=== PATIENT | female | born 1940 | race Caucasian/White ===

== ENCOUNTER → 2018-03-14 07:58 | Outpatient (CLI) | payer MEDICARE, SELFPAY ==
--- NOTE | 2018-03-14 | DI.MG.S_ITS ---
UNILATERAL LEFT DIGITAL SCREENING MAMMOGRAM 3D/2D WITH CAD POST MASTECTOMY: 03/14/2018 CLINICAL: Routine screening. Personal history of right breast cancer. Comparison is made to exams dated: 12/16/2016 mammogram, 11/21/2015 [facility], and 08/23/2014 mammogram - [facility]. There are scattered fibroglandular elements in left breast. Current study was also evaluated with a Computer Aided Detection (CAD) system. No significant masses, calcifications, or other findings are seen in the breast. There has been no significant interval change. IMPRESSION: NEGATIVE There is no mammographic evidence of malignancy. A 1 year screening mammogram is recommended. This exam was interpreted at Station ID: [id number]. NOTE: For mammograms, a report in lay terms will be sent to the patient. Approximately 15% of breast malignancies will not be visualized mammographically. In the management of a palpable breast mass, a negative mammogram must not discourage biopsy of a clinically suspicious lesion. Electronically Signed By: Arlette ramsey/aby:03/14/2018 15:03:03 copy to: PHILIP WADE letter sent: Normal Exam ACR BI-RADS Category 1: Negative [id number]
== END ==
PROVIDERS: PCP Internal Medicine; Visit Provider Physician Assistant
DX: Z12.31 Encounter for screening mammogram for malignant neoplasm of breast (principal); Z85.3 Personal history of malignant neoplasm of breast
CPT/HCPCS: 77063; 77065

== ENCOUNTER → 2018-12-22 14:12 | Outpatient (ROUT) | payer MEDICARE, SELFPAY ==
[2018-11-16 15:42] VITALS: BMI 30.1
[2018-12-22 14:29] LABS: Add Manual Diff / Slide Review NO; Basophils Absolute Auto 0 /uL (0-100); Basophils Percent Auto 0.9 % (0-2); Eosinophils Absolute Auto 200 /uL (0-450); Eosinophils Percent Auto 3.3 % (2-4); Hematocrit 36.4 % (36-46); Hemoglobin 12.3 g/dL (12.0-16.0); Lymphocytes Absolute Auto 800 /uL (1100-4500); Lymphocytes Percent Auto 14.7 % (25-40); Mean Corpuscular HGB Conc 33.8 % (30-36); Mean Corpuscular Hemoglobin 31.8 PG (26-34); Mean Corpuscular Volume 94.1 fL (80-100); Monocytes Absolute Auto 600 /uL (0-900); Neutrophils Absolute Auto 3900 /uL (1500-7000); Neutrophils Percent Auto 71.1 % (50-75); Platelet Count 215 X10^3/uL (150-400); Red Blood Cell Count 3.87 X10^6/uL (4.0-5.2); Red Cell Distribution Width 13.6 % (11.6-14.8); White Blood Cell Count 5.5 X10^3/uL (4.5-11.0)
[2018-12-22 14:36] LABS: Alanine Aminotransferase 24 IU/L (9-52); Albumin 4.3 g/dL (3.5-5.0); Albumin Globulin Ratio 1.4 (1.0-2.8); Alkaline Phosphatase 89 U/L (38-126); Aspartate Aminotransferase 32 IU/L (14-36); BUN Creatinine Ratio 26.3 (6-22); Bilirubin Total 0.5 mg/dL (0.2-1.3); Blood Urea Nitrogen 21 mg/dL (7-17); Calcium 9.5 mg/dL (8.4-10.2); Carbon Dioxide 34 mmol/L (22-32); Chloride 95 mmol/L (98-107); Cholesterol 154 mg/dL (140-199); Estimated Glomerular Filt Rate > 60.0 mL/min (>60); Glucose 85 mg/dL (80-110); HDL Cholesterol 76 mg/dL (40-60); HEMOLYSIS < 15 (0-50); LDL Cholesterol Calculated 63 mg/dL (<100); Potassium 4.2 mmol/L (3.4-5.1); Sodium 138 mmol/L (137-145); Total Protein 7.3 g/dL (6.3-8.2); Triglycerides 76 mg/dL (35-150)
[2018-12-22 15:41] LABS: TSH w/ Reflex to FT4 1.28 uIU/mL (0.47-4.68)
== END ==
PROVIDERS: PCP Physician Assistant; Visit Provider Physician Assistant
DX: E03.9 Hypothyroidism, unspecified (principal); E78.2 Mixed hyperlipidemia; K21.0 Gastro-esophageal reflux disease with esophagitis; G25.0 Essential tremor
CPT/HCPCS: 80053; 80061; 84443; 85025

== ENCOUNTER 2019-03-06 08:30 | Outpatient (RCR) | payer MEDICARE, SELFPAY ==
[2018-11-16 15:42] VITALS: BP 148/70; RESP 14; O2SAT 92; BMI 30.1
--- NOTE | 2018-11-16 16:20 | PR.IEVALNOTE ---
Current Diagnoses Centrilobular emphysema (11/08/18) Visit Care Team Role Provider Type Caitlyn Mathews PA-C Primary Care Provider Advanced Special Education Inclusion Teacher Specialty: Internal Medicine Address: [address] [place] [address], [address] Email: [email or web address] Dannielle Mishra MD Attending Provider Non-Staff Specialty: Medical Address: [address] [place] [address], [address] Email: Pulmonary Rehab Initial Evaluation [place] Pulmonary Rehab Inital Assessment Start: 11/08/18 16:24 Freq: Status: Active Protocol: Document 11/16/18 15:42 JWCatherine (Rec: 11/16/18 16:20 EDWIN [id number]) AK Exercise Assessment Dx: COPD, upper lobe emphysema Comment Hx:breast cancer Primary Language JORDANIAN Manager Film Required No Hearing Ability Normal Visual Impairment No Limitations Visual Difficutly None Visual Assist Glasses Musculoskeletal Symptoms Arthralgias,Difficulty Walking ,Joint Pain,Muscle Weakness Body Alignment Posture Forward Head,Leaning Assistive Devices None History of Falling (Immediate or No Previous) Secondary Diagnosis (More Than 2 Medical No Diagnoses) Comment Patient denies and barriers and states she feels she can exercise independently once she becomes comfortable with exercise through participation in pulmonary Rehab Comment patient doesn't participate in any purposeful exercise AK Vital Signs Pulse Oximetry (91-100 %) 92 Nasal Cannula Yes Oxygen Flow Rate (L/min) 2.5 Respiratory Rate (12-24 breaths/min) 14 Respiratory Effort Non-Labored,Accessory Muscle Use Respiratory Depth Normal Respiratory Pattern Pursed Lip Assessment clear to auscultation with no wheezes or rhonchi bilaterally Right Arm Blood Pressure (90/60-140/90 mmHg) 148/70 H Blood Pressure Method Manual Cuff/Auscultation Blood Pressure Position Sitting Bilateral Ankle Comment +1 AK Six Minute Walk Test Oxygen Delivery Method Nasal Cannula Oxygen Flow Rate (L) (L/min) 6 Respiratory Rate (breaths/min) 18 Pulse Rate (beats/min) 86 O2 Saturation by Pulse Oximetry (%) 92 Pulse Rate (beats/min) 86 Ambulation Distance (feet) 150 O2 Saturation by Pulse Oximetry (%) 91 Pulse Rate (beats/min) 90 Ambulation Distance (feet) 150 O2 Saturation by Pulse Oximetry (%) 89 Pulse Rate (beats/min) 88 Ambulatory Distance (feet) 100 O2 Saturation by Pulse Oximetry (%) 94 Respiratory Rate (breaths/min) 22 Pulse Rate (beats/min) 100 Ambulation Distance (feet) 0 O2 Saturation by Pulse Oximetry (%) 92 Pulse Rate (beats/min) 94 Ambulation Distance (feet) 100 O2 Saturation by Pulse Oximetry (%) 92 PUlse Rate (beats/min) 80 Ambulation Distance (feet) 150 O2 Saturation by Pulse Oximetry (%) 88 Respiratory Rate (breaths/min) 16 Pulse Rate (beats/min) 74 O2 Saturation by Pulse Oximetry (%) 96 Activity Tolerance Poor Adverse Reactions Anxiety,Increased Shortness of Breath,Unsteady Gait Distance 650 Isaura RPE Scale 14 Oriented to RPE Scale Yes Dyspnea 4 Oriented to Dyspnea Scale Yes AK Exercise Goals Exercise Goals Progression of exercise training volume will result from increases in time, intensity and frequency. Initial emphasis will be on increasing time Exercise Goals demonstrate proper technique with pursed lip breathing demonstrate breath sequencing with resistance exercises, ADL 's, stairs etc DASI Number and Comment 5.44 Short Term learn to climb stairs without onset of intolerant dyspnea and fatigue Prison be able to walk 500 ft without stopping due to dyspnea snd fatigue AK Pulmonary Rehab Orientation Complete Complete Yes AK Nutrition Assessment PFT Date 10/04/18 Forced Vital Capacity (FVC) 2.37 71% Slow Vital Capacity (SVC) 2.40 72% Forced Exp. Volume/Forced Vital Cap 40 Ratio (FEV1/FVC Ratio) Forced Expiratory Volume in 1 sec. 0.95 38% Diffusing Capacity of the Lung (DLCO) 28% History of Diabetes No Admit Height 175 cm Admit Weight 92.3 kg Admit Body Mass Index (BMI) 30.1 Liters Per Minute at Rest 2.5 Liters per Minute with ADL's 4 Liters per Minute with Sleep 2.5 Liters per Minute with Exercise 4-6 Oxygen Intervention/Education instructed with necessity to tirate oxygen to maintain SpO2 =>88-90% depending on activity High Energy Periods Printed Circuit Board Panels Developer,Mid-Morning Tolerates Activity Poor Signs and Symptoms Activity Intolerance Dyspnea on Exertion,Fatigue on Exertion,Weakness on Exertion Daytime Naps Yes AK Education Pre-Test Score 93% Tobacco Use Former, Quit >6 Months Tobacco Product Used cigarettes Total Years Used 40 Packs Per Day 2 Use Yes Type wine and liquor Amount 1/day Concerns None Education Topics Breathing Retraining Discussed Education Requirements on Yes Intake AK Psychosocial Initial Assess HADS Score 3 HADS Score 3 Marital Status Target Goals Demonstrate proper technique when using respiratory medications Physician Comment Ready for Pulmonary Rehabilitation Cooperative,Motivated
--- NOTE | 2018-12-15 11:04 | PR.REVALNOTE ---
Current Diagnoses Centrilobular emphysema (12/15/18) Visit Care Team Role Provider Type Caitlyn Mathews PA-C Primary Care Provider Advanced Safemaker Specialty: Internal Medicine Address: [address] [place] [address], [address] Email: [email or web address] Dannielle Mishra MD Attending Provider Non-Staff Specialty: Medical Address: [address] [place] [address], [address] Email: Pulmonary Rehab Re-Evaluation [place] Education Start: 11/08/18 16:24 Freq: Status: Active Protocol: Document 12/12/18 11:15 [facility] (Rec: 12/12/18 11:17 [facility] [id number]) [place] Education Education Pt attended Education today with the Program Proposals Coordinator. Subject matter Labels/Sugars and Salts . [place] Pulmonary Rehab. Re-Assessment Start: 11/08/18 16:24 Freq: Status: Active Protocol: Document 12/15/18 10:42 JW (Rec: 12/15/18 11:04 [facility] [id number]) [place] Exercise Re-Assessment New Session Number 1-8 Type Nustep,BioDex METs (resistance level) 3.06 strdr 2.64 ns % Improvement 72% strdr 9%ns Interval Training No Shortness of Breath with Exercise Yes Desaturation with Exercise No Free Weight Yes: 1# 12r 2s Band Level #3 band Intervention able to tolerate 20 mins of continuous CVEX-goal met participates in aerobic activities 30-60 mins 3x/week- showing progress demonstrates proper PLB technique-goal met will continue to reinforce current O2 needs 2-4 lpm dependent on exercise [place] Education Re-Assessment Topics Breathing Retraining,Benefits of Exercise,Eating Right NC Psychosocial Re-Assessment Patient in Class Regularly Yes Interventions Pt attending class regularly Referral Needed No Goals Pt will continue to attend classes 3x wk,Participate in social and educational discussion,Received emotional support from family/friends Additional Comment patient has had appointments scheduled during [place] sessions, discussed need to schedule around NC sessions rosalia possible
--- NOTE | 2019-01-26 10:58 | PR.REVALNOTE ---
Current Diagnoses Centrilobular emphysema (01/26/19) Visit Care Team Role Provider Type Caitlyn Mathews PA-C Primary Care Provider Advanced Japanese Tutor Specialty: Internal Medicine Address: [address] [place] [address], [address] Email: [email or web address] Dannielle Mishra MD Attending Provider Non-Staff Specialty: Pulmonology Address: [address] [place] [address], [address] Email: Pulmonary Rehab Re-Evaluation [place] Education Start: 11/08/18 16:24 Freq: Status: Active Protocol: Document 12/12/18 11:15 [facility] (Rec: 12/12/18 11:17 [facility] [id number]) [place] Education Education Pt attended Education today with the Telex Operator. Subject matter Labels/Sugars and Salts . [place] Pulmonary Rehab. Re-Assessment Start: 11/08/18 16:24 Freq: Status: Active Protocol: Document 12/15/18 10:42 [facility] (Rec: 12/15/18 11:04 [facility] [id number]) [place] Exercise Re-Assessment New Session Number 1-8 Type Nustep,BioDex METs (resistance level) 3.06 strdr 2.64 ns % Improvement 72% strdr 9%ns Interval Training No Shortness of Breath with Exercise Yes Desaturation with Exercise No Free Weight Yes: 1# 12r 2s Band Level #3 band Intervention able to tolerate 20 mins of continuous CVEX-goal met participates in aerobic activities 30-60 mins 3x/week- showing progress demonstrates proper PLB technique-goal met will continue to reinforce current O2 needs 2-4 lpm dependent on exercise [place] Education Re-Assessment Topics Breathing Retraining,Benefits of Exercise,Eating Right [place] Psychosocial Re-Assessment Patient in Class Regularly Yes Interventions Pt attending class regularly Referral Needed No Goals Pt will continue to attend classes 3x wk,Participate in social and educational discussion,Received emotional support from family/friends Additional Comment patient has had appointments scheduled during [place] sessions, discussed need to schedule around [place] sessions rosalia possible Document 01/26/19 10:32 JWS (Rec: 01/26/19 10:58 [facility] [id number]) [place] Exercise Re-Assessment New Session Number 9-18 Type Nustep,BioDex METs (resistance level) 3.20 strdr, 2.82 ns % Improvement 19% Strder 6% NS Interval Training Yes: 3.91 mets on strder Shortness of Breath with Exercise Yes Desaturation with Exercise No Free Weight Yes: 2# 12r 2s Band Level Yes: #3 Toward Target Goals increase in hand weights- showing progress GA Nutrition Re-Assessment Hypoxia Re-Assessment pt demonstrates appropriate titration depending on activity to keep SpO2 =>88-90% [place] Education Re-Assessment Topics Normal Anatomy and Physiology, Breathing Retraining,Benefits of Exercise,Activities of daily living/Leisure Activities,Eating Right, Irritant Avoidance/Prevention of Respiratory Infections, Coping with Chronic Lung Disease Goals Pt will Master PLB and Diaphragmatic Breathing,Pt will Master Energy Conserving Techniques,Pt will learn exercise safety,Pt will continue ED topics until completion [place] Psychosocial Re-Assessment Patient in Class Regularly Yes Interventions Pt attending class regularly Goals Participate in social and educational discussion, Received emotional support from family/friends Additional Comment patient attends 2x week
--- NOTE | 2019-03-20 13:46 | PR.DCNOTE ---
Current Diagnoses Centrilobular emphysema (03/20/19) Visit Care Team Role Provider Type Caitlyn Mathews PA-C Primary Care Provider Advanced Luggage Repairer Specialty: Internal Medicine Address: [address] [place] [address], [address] Email: [email or web address] Dannielle Mishra MD Attending Provider Non-Staff Specialty: Pulmonology Address: [address] [place] [address], [address] Email: Pulmonary Rehab Discharge Evaluation [place] Education Start: 11/08/18 16:24 Freq: Status: Active Protocol: Document 12/12/18 11:15 [facility] (Rec: 12/12/18 11:17 [facility] [id number]) [place] Education Education Pt attended Education today with the Machine Heel Seat Fitter. Subject matter Labels/Sugars and Salts . [place] Pulmonary Rehab. DC Assessment Start: 11/08/18 16:24 Freq: Status: Active Protocol: Document 03/20/19 13:38 [facility] (Rec: 03/20/19 13:46 [facility] [id number]) [place] Exercise Discharge Assess Session 9 Type ART METs (resistance level) 3.20STRDR % Improvement 0% Interval Training No Shortness of Breath with Exercise Yes Desaturation with Exercise No Free Weight Yes: 2# 12r 2s Band Level Yes: #2 [place] Nutrition DC Assessment Patient Ready Yes Reason Other (See comment below) Other Comment Patient has withdrawn from program at this time. Patient states she feels unable to travel to program from home.
== END 2019-03-06 08:35 ==
LOC: PUL 08:30
PROVIDERS: PCP Physician Assistant; Visit Provider Internal Medicine
DX: J43.2 Centrilobular emphysema (principal)
CPT/HCPCS: G0424

== ENCOUNTER → 2019-03-16 10:44 | Outpatient (CLI) | payer MEDICARE, SELFPAY ==
[2018-11-16 15:42] VITALS: BMI 30.1
--- NOTE | 2019-03-16 | DI.MG.S_ITS ---
UNILATERAL LEFT DIGITAL SCREENING MAMMOGRAM 3D/2D WITH CAD POST MASTECTOMY: 03/16/2019 CLINICAL: Routine screening. Routine screening. Personal history of right breast cancer. Comparison is made to exams dated: 03/14/2018 mammogram, 12/16/2016 mammogram, and 11/21/2015 mammogram - [facility]. There are scattered fibroglandular elements in left breast. Current study was also evaluated with a Computer Aided Detection (CAD) system. No significant masses, calcifications, or other findings are seen in the breast. There has been no significant interval change. IMPRESSION: NEGATIVE There is no mammographic evidence of malignancy. A 1 year screening mammogram is recommended. This exam was interpreted at Station ID: [id number]. NOTE: For mammograms, a report in lay terms will be sent to the patient. Approximately 15% of breast malignancies will not be visualized mammographically. In the management of a palpable breast mass, a negative mammogram must not discourage biopsy of a clinically suspicious lesion. Electronically Signed By: Tyrone aguilar/aby:03/16/2019 18:09:10 letter sent: Normal Exam ACR BI-RADS Category 1: Negative [id number]
== END ==
PROVIDERS: PCP Physician Assistant; Visit Provider Physician Assistant
DX: Z12.31 Encounter for screening mammogram for malignant neoplasm of breast (principal); Z85.3 Personal history of malignant neoplasm of breast; Z90.11 Acquired absence of right breast and nipple
CPT/HCPCS: 77063; 77067

== ENCOUNTER → 2019-10-17 14:37 | Outpatient (CLI) | payer MEDICARE, SELFPAY ==
[2018-11-16 15:42] VITALS: BMI 30.1
--- NOTE | 2019-10-17 | DI.US.S_ITS ---
PROCEDURE: US CAROTID DOPPLER BI INDICATIONS: RIGHT PRIMARY OPTIC ATROPHY TECHNIQUE: Color and pulse Doppler interrogation was performed of both carotid systems, with image documentation and velocity measurements. COMPARISON: [facility], [place], CAROTID ARTERY DOPPLER BILAT, 04/23/2015, 10:33. FINDINGS: Stenosis calculations are based on SRU (Society of Radiologists in Ultrasound) criteria. Right side: Brachial blood pressure: 182/80 mm Hg. Common carotid artery peak systolic velocity: 102 cm/sec. Internal carotid artery peak systolic velocity: 133 cm/sec. Internal carotid artery end diastolic velocity: 33 cm/sec. External carotid artery peak systolic velocity: 160 cm/sec. ICA/CCA peak systolic ratio: 1.3 . Freed scale imaging description: Mild to moderate calcific and soft plaque Percent internal carotid artery stenosis: 50-69% stenosis . Vertebral artery: Flow direction is antegrade. Left side: Brachial blood pressure: 130/84 mm Hg. Common carotid artery peak systolic velocity: 205 cm/sec. Internal carotid artery peak systolic velocity: 212 cm/sec. Internal carotid artery end diastolic velocity: 25 cm/sec. External carotid artery peak systolic velocity: 231 cm/sec. ICA/CCA peak systolic ratio: 1.0 . Freed scale imaging description: Moderate calcific and soft plaque Percent internal carotid artery stenosis: Less than 50% stenosis . Vertebral artery: Flow direction is antegrade. IMPRESSION: 50-69% stenosis within the proximal right internal carotid artery, less than 50% stenosis on the left. Vertebral arterial flow is antegrade in direction. Dictated by: Daniel Beverly M.D. on 10/18/2019 at 11:46 Approved by: Daniel Beverly M.D. on 10/18/2019 at 11:50
--- NOTE | 2019-10-17 | DI.MRI.S_ITS ---
PROCEDURE: MR HEAD/BRAIN WO/W CON INDICATIONS: Primary optic atrophy, right eye TECHNIQUE: Noncontrast axial T1 spin echo, axial T2 fast spin echo, sagittal and axial FLAIR, coronal T2 fast spin echo, axial gradient echo, axial diffusion and ADC through the brain. After the administration of contrast, axial and coronal T1 spin echo with fat saturation through the brain. COMPARISON: None. FINDINGS: Image quality: Excellent. CSF spaces: Basal cisterns are patent. No extra-axial fluid collections. Ventricles are normal in size and shape. Brain: No midline shift. No intracranial bleeds or masses. No abnormal intracranial enhancement. There is cerebral volume loss for age. There is periventricular white matter chronic small vessel ischemic change. The brainstem appears normal. Diffusion-weighted images demonstrate no acute ischemic insults. No chronic ischemic insults. Normal intravascular flow voids are present. Skull and face: Calvarial marrow is normal in signal. Orbits appear normal. Sinuses: Sinuses and mastoids appear clear. IMPRESSION: No evidence of acute ischemia. No acute intracranial signal abnormality or enhancement. Diffuse small white matter changes, probably represent chronic microvascular ischemic disease, versus statistically less likely demyelination or other infectious, inflammatory, neurodegenerative etiology, technically nonspecific. Dictated by: Benny Edwards M.D. on 10/17/2019 at 16:07 Approved by: Benny Edwards M.D. on 10/17/2019 at 16:12
== END ==
PROVIDERS: PCP Physician Assistant; Referring Provider Physician Assistant; Visit Provider Physician Assistant
DX: H47.211 Primary optic atrophy, right eye (principal); I65.23 Occlusion and stenosis of bilateral carotid arteries
CPT/HCPCS: 70553; 93880

== ENCOUNTER → 2020-01-24 15:49 | Outpatient (CLI) | payer MEDICARE, SELFPAY ==
[2018-11-16 15:42] VITALS: BMI 30.1
--- NOTE | 2020-01-24 | DI.ECHO.S_ITS ---
[facility] +---------+ : : [address] : : : : [id number] : : : : Phone: [phone]+ Echocardiogram Report + + :Name: SYMONE QUEZADA Study Date: 01/24/2020 Height: 69 in : :[facility] Weight: 200 lb : : Gender: Female BSA: 2.1 m2 : :: 1940 Age: 79 yrs BP: 188/93 mmHg: :Reason For Study: CARDIAC MURMUR : :Ordering Physician: CELINA, : :SHAVON Performed By: Patricia Soto : :Referring: SHAVON PATRICK : + + Interpretation Summary The left ventricle is normal in size. Left ventricular systolic function appears normal without focal wall motion abnormalities. The ejection fraction is estimated to be 55-60%. Diastolic parameters suggest a pseudonormalization pattern, consistent with probable elevated filling pressures. The right ventricle is normal in size and function. Pulmonary artery pressures cannot be estimated because of the lack of a measurable TR jet velocity but the IVC suggests a CVP of around 8 mmHg. The left atrium is mildly dilated. Right atrial size is normal. There is mild to moderate mitral annular calcification. There is mild to moderate mitral regurgitation. There is mild aortic valve sclerosis. There is mild to moderate aortic regurgitation. There is no other significant valvular heart disease. The ascending aorta is mildly enlarged. Procedure: A two-dimensional transthoracic echocardiogram with color flow and Doppler was performed. The study quality was technically adequate. Comparison is made with the echocardiogram of 02/22/2019. The patient was in sinus rhythm with heart rates between 64-78 bpm during the exam. Left Ventricle: The left ventricle is normal in size. Left ventricular wall thickness is borderline increased. Left ventricular systolic function appears normal without focal wall motion abnormalities. The ejection fraction is estimated to be 55-60%. Diastolic parameters suggest a pseudonormalization pattern, consistent with probable elevated filling pressures. Right Ventricle: The right ventricle is normal in size and function. Atria: The left atrium is mildly dilated. Right atrial size is normal. There is no Doppler evidence for an interatrial shunt. Mitral Valve: The mitral valve leaflets appear mildly thickened, but open well. There is mild to moderate mitral annular calcification. There is mild to moderate mitral regurgitation. Aortic Valve: The aortic valve is mildly calcified. There is mild aortic valve sclerosis. There is no aortic valve stenosis. There is mild to moderate aortic regurgitation. Tricuspid Valve: The tricuspid valve is not well visualized, but is grossly normal. There is mild tricuspid regurgitation. Pulmonary artery pressures cannot be estimated because of the lack of a measurable TR jet velocity but the IVC suggests a CVP of around 8 mmHg. Pulmonic Valve: The pulmonic valve is not well seen, but is grossly normal. There is trace pulmonic regurgitation. There is no other significant valvular heart disease. Great Vessels: The aortic root is normal size. The ascending aorta is mildly enlarged. The IVC is dilated (diameter is greater than 2.1 cm) yet it collapses greater than 50% with a sniff. This suggests a right atrial pressure of 8 mm Hg. Pericardium/ Pleura There is no pericardial effusion. There is an anterior echo-free space consistent with a fat pad. There has been no significant change since the previous study. MMode/2D Measurements & Calculations LVIDd: 5.1 cm LVOT diam: 2.0 cm LVIDs: 3.2 cm Ao root diam: 3.4 cm FS: 36.1 % asc Aorta Diam: 3.6 cm EPSS: 0.49 cm IVSd: 1.1 cm LVPWd: 1.0 cm LV mcfarlane. diameter/BSA (cm/m^2): 2.5 LV sys. diameter/BSA (cm/m^2): 1.6 LA A2 area: 23.8 cm2 RA long axis: 5.3 cm LA A4 area: 22.2 cm2 RA area: 17.2 cm2 LA length (vol): 5.5 cm RA vol: 47.4 ml LA vol: 81.6 ml RA : 22.9 ml/m2 LA vol index: 39.5 ml/m2 IVC diam: 2.3 cm RVD1 (basal): 3.1 cm TAPSE: 2.2 cm Doppler Measurements & Calculations Ao V2 max: 189.7 cm/sec LVOT Max Rah: 87.4 cm/sec Ao V2 mean: 138.6 cm/sec LV V1 max P.1 mmHg Ao max P.4 mmHg LV V1 VTI: 25.8 cm Ao mean P.5 mmHg AMBER(I,D): 1.5 cm2 Ao V2 VTI: 52.9 cm AMBER(V,D): 1.4 cm2 sev ratio: 0.49 AMBER indexed to BSA (cm^2/m^2): 0.71 AI P1/2t: 489.6 msec AI dec slope: 272.0 cm/sec2 MV E max rah: 89.8 cm/sec PA V2 max: 71.1 cm/sec MV A max rah: 81.7 cm/sec PA V2 mean: 46.2 cm/sec MV E/A: 1.1 PA mean P.00 mmHg Med Peak E' Rah: 4.4 cm/sec PA pr(Accel): 55.0 mmHg E/E' med: 20.6 Lat Peak E' Rah: 6.4 cm/sec E/E' lat: 14.0 E/e' average: 17.3 MV dec time: 0.17 sec SV(LVOT): 77.7 ml Reading Physician:05:53 PM
[2020-01-24 17:36] LABS: HEMOLYSIS < 15 (0-50); Iron 81 ug/dL (37-170)
[2020-01-24 17:40] LABS: Alanine Aminotransferase 22 IU/L (<35); Albumin 4.5 g/dL (3.5-5.0); Albumin Globulin Ratio 1.4 (1.0-2.8); Alkaline Phosphatase 81 U/L (38-126); Aspartate Aminotransferase 34 IU/L (14-36); BUN Creatinine Ratio 20.9 (6-22); Bilirubin Total 0.3 mg/dL (0.2-1.3); Blood Urea Nitrogen 18 mg/dL (7-17); Carbon Dioxide 35 mmol/L (22-32); Chloride 98 mmol/L (98-107); Cholesterol 168 mg/dL (140-199); Estimated Glomerular Filt Rate > 60.0 mL/min (>60); Globulin 3.2 g/dL (1.7-4.1); Glucose 99 mg/dL (80-110); HDL Cholesterol 73 mg/dL (40-60); HEMOLYSIS < 15 (0-50); LDL Cholesterol Calculated 76 mg/dL (<100); Potassium 3.9 mmol/L (3.4-5.1); Sodium 135 mmol/L (137-145); Total Protein 7.7 g/dL (6.3-8.2); Triglycerides 93 mg/dL (35-150)
[2020-01-24 17:41] LABS: Add Manual Diff / Slide Review NO; Basophils Absolute Auto 100 /uL (0-100); Basophils Percent Auto 1.1 % (0-2); Eosinophils Absolute Auto 200 /uL (0-450); Eosinophils Percent Auto 3.8 % (2-4); Hematocrit 35.1 % (36-46); Hemoglobin 12.1 g/dL (12.0-16.0); Lymphocytes Absolute Auto 1000 /uL (1100-4500); Lymphocytes Percent Auto 21.3 % (25-40); Mean Corpuscular HGB Conc 34.3 % (30-36); Mean Corpuscular Hemoglobin 32.9 PG (26-34); Mean Corpuscular Volume 95.8 fL (80-100); Monocytes Absolute Auto 500 /uL (0-900); Monocytes Percent Auto 11.3 % (3-14); Neutrophils Absolute Auto 2900 /uL (1500-7000); Neutrophils Percent Auto 62.5 % (50-75); Platelet Count 211 X10^3/uL (150-400); Red Blood Cell Count 3.67 X10^6/uL (4.0-5.2); Red Cell Distribution Width 13.7 % (11.6-14.8); White Blood Cell Count 4.6 X10^3/uL (4.5-11.0)
[2020-01-24 17:47] LABS: Percent Iron Saturation 27 % (15-50); Total Iron Binding Capacity 303 ug/dL (265-497); Transferrin 238 mg/dL (206-381)
[2020-01-24 18:14] LABS: Ferritin 54 ng/mL (11-264)
== END ==
PROVIDERS: PCP Physician Assistant; Referring Provider Physician Assistant; Visit Provider Physician Assistant
DX: I08.3 Combined rheumatic disorders of mitral, aortic and tricuspid valves (principal); I77.89 Other specified disorders of arteries and arterioles; R01.1 Cardiac murmur, unspecified; N18.9 Chronic kidney disease, unspecified; I50.9 Heart failure, unspecified; R79.89 Other specified abnormal findings of blood chemistry; D64.9 Anemia, unspecified; E03.9 Hypothyroidism, unspecified; E78.2 Mixed hyperlipidemia
CPT/HCPCS: 36415; 80053; 80061; 82728; 83540; 83550; 85025; 93306

== ENCOUNTER → 2020-06-10 18:36 | Outpatient (ROUT) | payer MEDICARE, SELFPAY ==
[2018-11-16 15:42] VITALS: BMI 30.1
[2020-06-10 19:07] LABS: Add Manual Diff / Slide Review NO; Basophils Absolute Auto 0 /uL (0-100); Basophils Percent Auto 0.9 % (0-2); Eosinophils Absolute Auto 100 /uL (0-450); Eosinophils Percent Auto 2.7 % (2-4); Hematocrit 35.9 % (36-46); Lymphocytes Absolute Auto 1100 /uL (1100-4500); Lymphocytes Percent Auto 20.8 % (25-40); Mean Corpuscular HGB Conc 33.5 % (30-36); Mean Corpuscular Hemoglobin 31.7 PG (26-34); Mean Corpuscular Volume 94.5 fL (80-100); Monocytes Absolute Auto 500 /uL (0-900); Monocytes Percent Auto 10.6 % (3-14); Neutrophils Absolute Auto 3300 /uL (1500-7000); Platelet Count 232 X10^3/uL (150-400); Red Cell Distribution Width 13.7 % (11.6-14.8); White Blood Cell Count 5.1 X10^3/uL (4.5-11.0)
[2020-06-10 19:17] LABS: Alanine Aminotransferase 10 IU/L (<35); Albumin 4.4 g/dL (3.5-5.0); Albumin Globulin Ratio 1.5 (1.0-2.8); Alkaline Phosphatase 93 U/L (38-126); Aspartate Aminotransferase 34 IU/L (14-36); BUN Creatinine Ratio 25.2 (6-22); Bilirubin Total 0.2 mg/dL (0.2-1.3); Blood Urea Nitrogen 28 mg/dL (7-17); Calcium 9.5 mg/dL (8.4-10.2); Carbon Dioxide 32 mmol/L (22-32); Chloride 96 mmol/L (98-107); Estimated Glomerular Filt Rate 47.4 mL/min (>60); Globulin 2.9 g/dL (1.7-4.1); Glucose 86 mg/dL (80-110); HEMOLYSIS < 15 (0-50); Potassium 4.5 mmol/L (3.4-5.1); Sodium 135 mmol/L (137-145); Total Protein 7.3 g/dL (6.3-8.2)
[2020-06-10 19:26] LABS: NT-proBNP (BNP-Adult 18+) 495 pg/mL (<450)
[2020-06-10 19:49] LABS: TSH w/ Reflex to FT4 5.18 uIU/mL (0.47-4.68)
[2020-06-10 20:36] LABS: Free T4, Direct Thyroxine 1.66 ng/dL (0.78-2.19)
== END ==
PROVIDERS: PCP Physician Assistant; Visit Provider Physician Assistant
DX: E03.9 Hypothyroidism, unspecified (principal); I50.9 Heart failure, unspecified; N18.9 Chronic kidney disease, unspecified
CPT/HCPCS: 80053; 83880; 84439; 84443; 85025

== ENCOUNTER 2024-05-02 18:29 | Inpatient (IN) | payer MEDICARE, SELFPAY ==
[2018-11-16 15:42] VITALS: BMI 30.1
[2024-05-02] VITALS (12 sets, daily range): BP systolic 141–170; BP diastolic 63–93; PULSE 71–86; RESP 10–25; TEMP 36.6; O2SAT 92–98; BMI 29.5
--- NOTE | 2024-05-02 18:41 | DI.RAD.S_ITS ---
PROCEDURE: XR CHEST 1V INDICATIONS: Shortness of breath TECHNIQUE: One view of the chest was acquired. COMPARISON: [facility], CT, CT CHEST WITHOUT CONTRAST, 02/07/2024, 17:49. [facility], CR, CHEST 2 VIEW, 11/27/2015, 16:43. [facility], , CHEST 2 VIEW, 09/13/2015, 11:40. FINDINGS: Surgical changes and devices: Right axillary clips. Lungs and pleura: No consolidation is identified. Severe emphysematous change. No pleural effusions or pneumothorax. Mediastinum: Mediastinal contours appear normal. Heart size is normal. Bones and chest wall: No suspicious bony lesions. Overlying soft tissues appear unremarkable. IMPRESSION: Emphysematous change. No consolidation identified. Dictated by: Aldair White M.D. on 05/02/2024 at 19:45 Approved by: Aldair White M.D. on 05/02/2024 at 19:47
--- NOTE | 2024-05-02 18:41 | EKG_ITS ---
[address] [address] Test Date: 2024-05-02 Pat Name: Glenda De La Cruz Department: [facility] Room: Gender: Female Stretching Machine Operator: : 1940 Requested By: Order Number: [id number] Reading MD: Abelardo Beasley Measurements Intervals [place] Rate: 82 P: 92 ID: [id number] QRS: -13 QRSD: 86 T: 78 QT: 398 QTc: 464 Interpretive Statements Sinus rhythm with premature atrial complexes Septal infarct , age undetermined Electronically Signed On 05-02-2024 18:58:26 PST by Abelardo Beasley
[2024-05-02 18:51] LABS: Add Manual Diff / Slide Review NO; Basophils Absolute Auto 100 /uL (0-100); Basophils Percent Auto 0.7 % (0-2); Eosinophils Absolute Auto 100 /uL (0-450); Eosinophils Percent Auto 1.9 % (2-4); Hematocrit 37.2 % (36-46); Hemoglobin 12.6 g/dL (12.0-16.0); Lymphocytes Absolute Auto 800 /uL (1100-4500); Mean Corpuscular HGB Conc 33.8 % (30-36); Mean Corpuscular Hemoglobin 32.3 PG (26-34); Mean Corpuscular Volume 95.5 fL (80-100); Monocytes Absolute Auto 500 /uL (0-900); Monocytes Percent Auto 7.4 % (3-14); Neutrophils Absolute Auto 5800 /uL (1500-7000); Platelet Count 276 X10^3/uL (150-400); Red Cell Distribution Width 13.7 % (11.6-14.8); White Blood Cell Count 7.3 X10^3/uL (4.5-11.0)
[2024-05-02 19:06] LABS: Alanine Aminotransferase 26 IU/L (<35); Albumin 4.7 g/dL (3.5-5.0); Albumin Globulin Ratio 1.4 (1.0-2.8); Alkaline Phosphatase 98 U/L (38-126); Aspartate Aminotransferase 39 IU/L (14-36); BUN Creatinine Ratio 28.4 (6-22); Bilirubin Total 0.4 mg/dL (0.2-1.3); Blood Urea Nitrogen 19 mg/dL (7-17); Calcium 9.1 mg/dL (8.4-10.2); Carbon Dioxide 31 mmol/L (22-32); Chloride 95 mmol/L (98-107); Estimated Glomerular Filt Rate > 60 mL/min (>60); Globulin 3.4 g/dL (1.7-4.1); Glucose 150 mg/dL (80-110); HEMOLYSIS 32 (0-50); Potassium 4.6 mmol/L (3.4-5.1); Sodium 134 mmol/L (137-145); Total Protein 8.1 g/dL (6.3-8.2)
[2024-05-02 19:07] LABS: INR 0.9 (0.9-1.3); Prothrombin Time 10.7 SECONDS (9.4-12.5)
[2024-05-02 19:23] LABS: NT-proBNP (BNP-Adult 18+) 814 pg/mL (<450); Troponin I < 0.012 ng/mL (0.01-0.034)
[2024-05-03] VITALS (11 sets, daily range): BP systolic 151–185; BP diastolic 63–82; PULSE 71–108; RESP 18–27; TEMP 36.3–37.1; O2SAT 92–98; BMI 27.5
--- NOTE | 2024-05-03 00:07 | ED.GENADULT ---
HPI - General Adult General Chief complaint: Shortness of Breath/Dyspnea Stated complaint: Difficulty breathing Time Seen by Provider: 05/02/24 20:09 Source: patient Mode of arrival: EMS History of Present Illness HPI narrative: 84-year-old female with history of COPD, usually use 5 L oxygen, lives in [facility], felt more short of breath through the day today. Without chest pain nausea or vomiting. Transfer by EMS, given breathing treatment during transport, felt better with breathing treatment. No fevers or chills. Denies discomfort in chest, arms, shoulders. Lives in the [facility]. Related Data Home Medications Medication Instructions Recorded Confirmed amlodipine 10 mg PO DAILY 05/03/24 05/03/24 atorvastatin 40 mg PO BEDTIME 05/03/24 05/03/24 citalopram 40 mg PO BEDTIME 05/03/24 05/03/24 clopidogrel 75 mg PO BEDTIME 05/03/24 05/03/24 labetalol 300 mg PO BID 05/03/24 05/03/24 levothyroxine 200 mcg PO QACBREAK 05/03/24 05/03/24 primidone 150 mg PO BEDTIME 05/03/24 05/03/24 spironolactone 25 mg PO DAILY 05/03/24 05/03/24 Previous Rx's Medication Instructions Recorded prednisone 20 mg tablet 40 mg (2 x 20 mg) PO DAILY 5 days 05/03/24 #10 tabs Allergies Allergy/AdvReac Type Severity Reaction Status Date / Time No Known Drug Allergies Allergy Verified 05/03/24 00:27 Patient History Medical History (Updated 05/03/24 @ 01:38 by Tobi Walsh MD) Hypothyroidism associated with surgical procedure HTN (hypertension) COPD (chronic obstructive pulmonary disease) Surgical History (Updated 05/03/24 @ 00:27 by Belkis No RN) History of lumbar laminectomy History of hysterectomy History of renal stent History of mastectomy H/O thyroidectomy Social History household members: spouse Smoking Status: Former smoker Tobacco: How many years used: 40 Smoking Status: Former smoker Exam Narrative Exam Narrative: GENERAL: Well-developed patient, in mild distress. HEAD: Atraumatic. Normocephalic. EYES: Pupils equal round and reactive. Extraocular motions intact. No scleral icterus. No injection or drainage. ENT: Nose without bleeding, purulent drainage. Throat without erythema, tonsillar hypertrophy or exudate. Airway patent. NECK: Trachea midline. Non tender CARDIOVASCULAR: Regular rate and rhythm without murmurs, gallops, or rubs. RESPIRATORY: Clear to auscultation. Breath sounds equal bilaterally. No wheezes, rales, or rhonchi. No retractions, speaks full sentences. GASTROINTESTINAL: Abdomen soft, non-tender, nondistended. EXTREMITIES: No edema or joint tenderness. BACK: Nontender without deformity or crepitance. No flank tenderness. NEURO: AOx3. Motor functions grossly nonfocal SKIN: No rash or erythema of visible areas Initial Vital Signs Initial Vital Signs: Vital Signs Temperature 98 F 05/02/24 18:36 Pulse Rate 86 05/02/24 18:36 Respiratory Rate 24 05/02/24 18:36 Blood Pressure 151/93 H 05/02/24 18:36 Pulse Oximetry 92 05/02/24 18:36 Oxygen Delivery Method Nasal Cannula 05/02/24 18:36 Oxygen Flow Rate 8 05/02/24 18:36 Course Orders Ordered: Acetaminophen (Acetaminophen 325 Mg Tablet) 650 mg PO Q6H PRN PRN Reason: Fever/Mild Pain (1-3) Albuterol/Ipratropium (Albuterol/Ipratropium 3 Ml Ampul) 3 ml INH RTQ4HR PRN PRN Reason: Shortness Of Breath Albuterol/Ipratropium (Albuterol/Ipratropium 3 Ml Ampul) 3 ml INH [id number] [facility] Last Admin: 05/03/24 13:25 Dose: 3 ml Documented By: Admin: 05/03/24 07:10 Dose: 3 ml Documented By: VIGNESH Heparin Sodium (Porcine) (Heparin 5,000 Unit/Ml Vial) 5,000 unit SUBCUT BID [facility] Last Admin: 05/03/24 09:47 Dose: 5,000 unit Documented By: FILI Methylprednisolone (Methylprednisolone 40 Mg/Ml Vial) 60 mg INJ Q6H [facility] Last Admin: 05/03/24 05:56 Dose: 60 mg Documented By: SH Naloxone HCl (Naloxone 0.4 Mg/Ml Vial) 0.2 mg IV Q2MIN PRN PRN Reason: Opiate Reversal Ondansetron HCl (Ondansetron 4 Mg/2 Ml Inj) 4 mg IV Q8HR PRN PRN Reason: Nausea And Vomiting Pantoprazole Sodium (Pantoprazole Dr 20 Mg Tablet) 40 mg PO DAILY [facility]ARA Last Admin: 05/03/24 09:47 Dose: 40 mg Documented By: FILI Discontinued Medications Albuterol/Ipratropium (Albuterol/Ipratropium 3 Ml Ampul) 3 ml INH NOW ONE Stop: 05/03/24 00:03 Last Admin: 05/03/24 00:31 Dose: 3 ml Documented By: ARVIND Methylprednisolone (Methylprednisolone 125 Mg/2 Ml Vial) 125 mg IV NOW ONE Stop: 05/03/24 00:17 Last Admin: 05/03/24 00:31 Dose: 125 mg Documented By: ARVIND Vital Signs Vital signs: Vital Signs - 8 hr 05/02/24 18:36 05/02/24 19:49 05/02/24 19:50 Temperature 98 F Pulse Rate 86 77 Respiratory Rate 24 Blood Pressure 151/93 H Pulse Oximetry 92 95 95 Oxygen Delivery Method Nasal Cannula Oxygen Flow Rate 8 05/02/24 19:50 05/02/24 20:00 05/02/24 20:01 Temperature Pulse Rate 72 73 Respiratory Rate 25 H 21 Blood Pressure 168/73 H Pulse Oximetry 96 96 Oxygen Delivery Method Oxygen Flow Rate 05/02/24 20:01 05/02/24 20:30 05/02/24 20:30 Temperature Pulse Rate 71 Respiratory Rate 10 L Blood Pressure 165/71 H 141/77 H Pulse Oximetry 96 Oxygen Delivery Method Nasal Cannula Oxygen Flow Rate 6 05/02/24 21:00 05/02/24 21:00 05/02/24 21:30 Temperature Pulse Rate 71 Respiratory Rate 12 Blood Pressure 150/67 H 149/63 H Pulse Oximetry 96 Oxygen Delivery Method Oxygen Flow Rate 05/02/24 21:30 05/02/24 22:00 05/02/24 22:00 Temperature Pulse Rate 72 72 Respiratory Rate 16 15 Blood Pressure 146/66 H Pulse Oximetry 96 98 Oxygen Delivery Method Oxygen Flow Rate 05/02/24 22:30 05/02/24 22:30 05/02/24 23:00 Temperature Pulse Rate 72 71 Respiratory Rate 17 13 Blood Pressure 147/69 H Pulse Oximetry 98 98 Oxygen Delivery Method Oxygen Flow Rate 05/02/24 23:00 05/02/24 23:30 05/02/24 23:30 Temperature Pulse Rate 73 Respiratory Rate 12 Blood Pressure 170/72 H 160/72 H Pulse Oximetry 97 Oxygen Delivery Method Oxygen Flow Rate 05/03/24 00:00 05/03/24 00:00 05/03/24 00:30 Temperature Pulse Rate 71 78 Respiratory Rate 21 20 Blood Pressure 162/70 H Pulse Oximetry 97 96 Oxygen Delivery Method Nasal Cannula Nasal Cannula Oxygen Flow Rate 6 6 05/03/24 00:30 Temperature Pulse Rate Respiratory Rate Blood Pressure 166/74 H Pulse Oximetry Oxygen Delivery Method Oxygen Flow Rate Medical Decision Making Lab Data Lab results reviewed: Yes I reviewed the patient's lab results. Lab results narrative: White blood cell count 7300, hemoglobin 12.6, platelets 276,000. Sodium 134, with glucose 150, potassium 4.6, BUN 19 with creatinine 0.67. Liver functions unremarkable, lipase normal. Troponin negative. BNP 8 0s mild elevation noted. 05/03/24 06:06 05/03/24 06:06 Labs: Lab Results 05/02/24 05/02/24 05/02/24 Range/Units 18:35 18:52 20:16 WBC 7.3 (4.5-11.0) X10^3/uL RBC 3.90 L (4.0-5.2) X10^6/uL Hgb 12.6 (12.0-16.0) g/dL Hct 37.2 (36-46) % MCV 95.5 (80-100) fL MCH 32.3 (26-34) PG MCHC 33.8 (30-36) % RDW 13.7 (11.6-14.8) % Plt Count 276 (150-400) X10^3/uL Neut % (Auto) 79.0 H (50-75) % Lymph % (Auto) 11.0 L (25-40) % [place] % (Auto) 7.4 (3-14) % Eos % (Auto) 1.9 L (2-4) % Baso % (Auto) 0.7 (0-2) % Neut # (Auto) 5800 (5010-9333) /uL Lymph # (Auto) 800 L (0755-2454) /uL [place] # (Auto) 500 (0-900) /uL Eos # (Auto) 100 (0-450) /uL Baso # (Auto) 100 (0-100) /uL PT 10.7 (9.4-12.5) SECONDS INR 0.9 (0.9-1.3) Sodium 134 L (137-145) mmol/L Potassium 4.6 (3.4-5.1) mmol/L Chloride 95 L (98-107) mmol/L Carbon Dioxide 31 (22-32) mmol/L BUN 19 H (7-17) mg/dL Creatinine 0.67 (0.52-1.04) mg/dL Estimated GFR > 60 (>60) mL/min BUN/Creatinine Ratio 28.4 H (6-22) Glucose 150 H (80-110) mg/dL Lactate 2.0 (0.7-2.1) mmol/L Calcium 9.1 (8.4-10.2) mg/dL Total Bilirubin 0.4 (0.2-1.3) mg/dL AST 39 H (14-36) IU/L ALT 26 (<35) IU/L Alkaline Phosphatase 98 (38-126) U/L Troponin I < 0.012 (0.01-0.034) ng/mL NT-Pro-B Natriuret Pep 814 H (<450) pg/mL Total Protein 8.1 (6.3-8.2) g/dL Albumin 4.7 (3.5-5.0) g/dL Globulin 3.4 (1.7-4.1) g/dL Albumin/Globulin Ratio 1.4 (1.0-2.8) SARS-CoV-2 (PCR) Negative (Negative) Influenza A (RT-PCR) Flu a negative (NEGATIVE) Influenza B (RT-PCR) Flu b negative (NEGATIVE) RSV (PCR) Negative (Negative) Imaging Data Chest x-ray: Radiologist's Impression: [address] [address] XRay Report Signed Patient: Glenda De La Cruz MR#: [id number] : 1940 Acct:[id number] Age/Sex: 84 / F Date of Service: 05/02/24 Loc: ED Accession Number: [id number] Procedure: XR chest 1V Ordering Provider: Tobi Walsh MD PROCEDURE: XR CHEST 1V INDICATIONS: Shortness of breath TECHNIQUE: One view of the chest was acquired. COMPARISON: [facility], CT, CT CHEST WITHOUT CONTRAST, 02/07/2024, 17:49. [facility], , CHEST 2 VIEW, 11/27/2015, 16:43. [facility], , CHEST 2 VIEW, 09/13/2015, 11:40. FINDINGS: Surgical changes and devices: Right axillary clips. Lungs and pleura: No consolidation is identified. Severe emphysematous change. No pleural effusions or pneumothorax. Mediastinum: Mediastinal contours appear normal. Heart size is normal. Bones and chest wall: No suspicious bony lesions. Overlying soft tissues appear unremarkable. IMPRESSION: Emphysematous change. No consolidation identified. Dictated by: Aldair White M.D. on 05/02/2024 at 19:45 Approved by: Aldair White M.D. on 05/02/2024 at 19:47 ECG Data Attestation: I personally reviewed and interpreted this ECG as follows: Interpretation: Normal sinus rhythm with rate 85, no obvious ST segment elevation or depression changes. OK 186, QRS 88, QTC 466. MDM Narrative Medical decision making narrative: 84-year-old female with history of chronic lung disease on 5 liters/minute flow rate at home in [place], recent cough and shortness of breath, given breathing treatment by EMS during transport, some improvement of symptoms. Speaks in full sentences. Additional breathing treatment DuoNeb given, IV Solu-Medrol. EKG troponin negative. Chest x-ray shows COPD changes, no infiltrate or pneumothorax or fluid overload changes per Radiology report. 0120, trial of ambulation, on her usual 5 liters/minute, at rest has adequate saturation but desaturates and feels quite short of breath with minimal exertion walking on flat surface. She feels that she is not well enough to go home. Requests admission. We will contact hospitalist. 0135, case discussed with hospitalist Dr. Manzano who accepts patient for admission to observation. Patient currently on 6 liters/minute flow rate slightly increased from baseline. We will add COVID/flu swab testing. Covid Flu RSV were negative. Critical Care Time Critical Care Time Total Critical Care Time: 35 Attestation: The high probability of a clinically significant, sudden or life threatening deterioration of the [cardiopulmonary] system(s) required my full and direct attention, intervention and personal management. The aggregate critical care time was [35] minutes. This time is in addition to time spent performing reported procedures but includes the following: [x] Data Review and interpretation [x] Patient assessment and monitoring of vital signs [x] Documentation [x] Medication orders and management Discharge Plan Departure Patient Disposition: Admitted as Observation Clinical Impression: COPD exacerbation, Exertional shortness of breath, Chronic respiratory insufficiency Admit Date/Time: 05/03/24 01:40 Admit Provider: Preston Manzano
[2024-05-03] MEDS: methylPREDNISolone 125 MG/2 ML VIAL IV (00:31)
[2024-05-03] MEDS: ALBUTEROL/IPRATROPIUM 3 ML AMPUL INH ×4 (00:31→20:51)
[2024-05-03 02:31] LABS: Influenza A - CEPHEID Flu A NEGATIVE (NEGATIVE); Influenza B - CEPHEID Flu B NEGATIVE (NEGATIVE); Respiratory Syncytial Virus Negative (Negative)
[2024-05-03 02:32] LABS: COVID-19 CEPHEID 4-PLEX PCR Negative (Negative)
--- NOTE | 2024-05-03 05:59 | P.HP_ITS ---
History of Present Illness History of Present Illness Chief complaint: Difficulty breathing Narrative: 84-year-old female with past medical history of COPD on 5 L of oxygen at baseline, hypertension, hyperlipidemia, and anxiety presents with complaint of shortness of breath. Per the patient's report, the patient started to have increasing shortness of breath today. The patient admits he has some mild wheezing but denies any fever, new cough, chills, nausea, vomiting, diarrhea or chest pain. The patient did try her inhalers and nebulizer at home without much improvement. In our emergency room, the patient was hemodynamically stable. The patient initially was on 5 L of oxygen and was saturating well at rest. Chest x-ray shows no clear signs of pneumonia. Labs were relatively benign without sign of sepsis. BNP was in 800s but again chest x-ray shows no sign of volume overload. Patient was given DuoNebs as well as Solu-Medrol. Our ER physician did try to attempt to discharge the patient home but when the patient was ambulating she has increasing shortness of breath and her sats did drop requiring 6 L of oxygen. [facility] Medical History (Updated 05/03/24 @ 01:38 by Tobi Walsh MD) Hypothyroidism associated with surgical procedure HTN (hypertension) COPD (chronic obstructive pulmonary disease) Surgical History (Updated 05/03/24 @ 00:27 by Belkis No RN) History of lumbar laminectomy History of hysterectomy History of renal stent History of mastectomy H/O thyroidectomy Social History household members: spouse Smoking Status: Former smoker Tobacco: How many years used: 40 Meds Home Medications and Allergies Home Medications Medication Instructions Recorded Confirmed Type amlodipine 05/03/24 History atorvastatin 05/03/24 History citalopram 05/03/24 History clopidogrel 05/03/24 History labetalol 05/03/24 History levothyroxine 05/03/24 History prednisone 20 mg tablet 40 mg (2 x 20 mg) PO DAILY 5 days 05/03/24 Rx #10 tabs primidone 05/03/24 History spironolactone 05/03/24 History Allergies Allergy/AdvReac Type Severity Reaction Status Date / Time No Known Drug Allergies Allergy Verified 05/03/24 00:27 Review of Systems Review of Systems ROS: Yes All systems reviewed with the patient and are negative except as otherwise documented Exam Vital Signs (past 8 hours): - 05/02/24 22:00 05/02/24 22:00 05/02/24 22:30 Temperature Pulse Rate 72 Respiratory Rate 15 Blood Pressure 146/66 H 147/69 H Pulse Oximetry 98 Oxygen Delivery Method Oxygen Flow Rate 05/02/24 22:30 05/02/24 23:00 05/02/24 23:00 Temperature Pulse Rate 72 71 Respiratory Rate 17 13 Blood Pressure 170/72 H Pulse Oximetry 98 98 Oxygen Delivery Method Oxygen Flow Rate 05/02/24 23:30 05/02/24 23:30 05/03/24 00:00 Temperature Pulse Rate 73 Respiratory Rate 12 Blood Pressure 160/72 H 162/70 H Pulse Oximetry 97 Oxygen Delivery Method Oxygen Flow Rate 05/03/24 00:00 05/03/24 00:30 05/03/24 00:30 Temperature Pulse Rate 71 78 Respiratory Rate 21 20 Blood Pressure 166/74 H Pulse Oximetry 97 96 Oxygen Delivery Method Nasal Cannula Nasal Cannula Oxygen Flow Rate 6 6 05/03/24 01:31 05/03/24 01:31 05/03/24 01:32 Temperature 97.5 F L Pulse Rate 73 82 Respiratory Rate 23 Blood Pressure 151/66 H 164/63 H Pulse Oximetry 98 96 Oxygen Delivery Method Nasal Cannula Oxygen Flow Rate 5 6 05/03/24 01:43 Temperature Pulse Rate Respiratory Rate Blood Pressure Pulse Oximetry Oxygen Delivery Method Nasal Cannula Oxygen Flow Rate Oxygen Delivery Method Nasal Cannula Oxygen Flow Rate 6 Narrative Exam Narrative: Physical Exam: GENERAL: The patient is not in any acute distressed. Awake and alert. HEENT: Nonicteric sclerae, PERRLA, EOMI. Oropharynx clear. Moist mucous membranes. Conjunctivae appear well perfused. HEART: Regular rate and rhythm without murmurs. No lower extremities edema. LUNGS: Clear to auscultation bilaterally. No wheezing, crackles or rhonchi ABDOMEN: Soft, positive bowel sounds, nontender. SKIN: No rash, no excessive bruising, petechiae, or purpura. NEUROLOGIC: AxO x 3. Cranial nerves II-XII intact without motor/sensory deficit. Objective Labs 05/02/24 18:35 05/02/24 18:35 Labs: Laboratory Results - last 24 hr 05/02/24 05/02/24 05/02/24 18:35 18:52 20:16 WBC 7.3 RBC 3.90 L Hgb 12.6 Hct 37.2 MCV 95.5 MCH 32.3 MCHC 33.8 RDW 13.7 Plt Count 276 Neut % (Auto) 79.0 H Lymph % (Auto) 11.0 L [place] % (Auto) 7.4 Eos % (Auto) 1.9 L Baso % (Auto) 0.7 Neut # (Auto) 5800 Lymph # (Auto) 800 L [place] # (Auto) 500 Eos # (Auto) 100 Baso # (Auto) 100 PT 10.7 INR 0.9 Sodium 134 L Potassium 4.6 Chloride 95 L Carbon Dioxide 31 BUN 19 H Creatinine 0.67 Estimated GFR > 60 BUN/Creatinine Ratio 28.4 H Glucose 150 H Lactate 2.0 Calcium 9.1 Total Bilirubin 0.4 AST 39 H ALT 26 Alkaline Phosphatase 98 Troponin I < 0.012 NT-Pro-B Natriuret Pep 814 H Total Protein 8.1 Albumin 4.7 Globulin 3.4 Albumin/Globulin Ratio 1.4 SARS-CoV-2 (PCR) Negative Influenza A (RT-PCR) Flu a negative Influenza B (RT-PCR) Flu b negative RSV (PCR) Negative Assessment & Plan Assessment & Plan narrative: Mild COPD exacerbation. Admit the patient to medical telemetry under observation. Continue Solu-Medrol and DuoNebs. Of note patient's viral panel is pending. No signs of pneumonia on chest x-ray. Due to slightly increased oxygen need from baseline ER physician requested observation status. Acute on chronic respiratory failure with hypoxemia. Of note patient is requiring 6 L with ambulation but her baseline is 5 L of oxygen. Will treat as above and wean down oxygen as able. Hypertension. Monitor blood pressure and resume home medication accordingly. Hyperlipidemia. Resume home statin once medication dose is confirmed. Hypothyroidism. Resume home synthroid once medication dose is confirmed. DVT prophylaxis heparin subcu. CODE STATUS DNR/DNI. Disposition likely home in 1 to 2 days. Time-Based Coding :: [TOTAL MINUTES] spent with patient and on the chart (including review of chart, obtaining history, exam, reviewing outside data, placing orders, documenting exam and treatment plan, and counseling patient) on [DATE].
[2024-05-03 06:26] LABS: Add Manual Diff / Slide Review NO; Basophils Absolute Auto 100 /uL (0-100); Basophils Percent Auto 0.8 % (0-2); Eosinophils Absolute Auto 0 /uL (0-450); Eosinophils Percent Auto 0.1 % (2-4); Hematocrit 34.6 % (36-46); Hemoglobin 11.8 g/dL (12.0-16.0); Lymphocytes Absolute Auto 400 /uL (1100-4500); Mean Corpuscular HGB Conc 34.1 % (30-36); Mean Corpuscular Hemoglobin 32.1 PG (26-34); Mean Corpuscular Volume 94.3 fL (80-100); Monocytes Absolute Auto 100 /uL (0-900); Neutrophils Absolute Auto 6500 /uL (1500-7000); Neutrophils Percent Auto 92.1 % (50-75); Platelet Count 228 X10^3/uL (150-400); Red Blood Cell Count 3.67 X10^6/uL (4.0-5.2); Red Cell Distribution Width 13.9 % (11.6-14.8)
[2024-05-03 06:36] LABS: BUN Creatinine Ratio 26.6 (6-22); Blood Urea Nitrogen 17 mg/dL (7-17); Calcium 9.2 mg/dL (8.4-10.2); Carbon Dioxide 31 mmol/L (22-32); Chloride 97 mmol/L (98-107); Estimated Glomerular Filt Rate > 60 mL/min (>60); Glucose 141 mg/dL (80-110); HEMOLYSIS < 15 (0-50); Potassium 4.5 mmol/L (3.4-5.1); Sodium 133 mmol/L (137-145)
[2024-05-03] MEDS: HEPARIN 5,000 UNIT/ML VIAL 5000 UNIT SUBCUT ×2 (09:47→20:54)
[2024-05-03] MEDS: PANTOPRAZOLE DR 20 MG TABLET 40 MG PO (09:47)
--- NOTE | 2024-05-03 10:25 | CM.DANOTE ---
Initial DCP Assessment Visit Note Reviewed EMR and team rounds for medical status and updates. Met with patient at bedside to introduce self and role. Patient was alert and oriented. Patient lives independently with her spouse in their own home in [place]. Patient said she relies on neighbors to help her get to appointments. neither the patient or her spouse drive anymore. Patient said she would like us to help arrange a ride home for her at discharge. She is not in support of asking neighbors for a ride home. Plan will be to D/C home with oxygen therapy which patient was already set up with prior to hospitalization. Patient said she is open to home health if therapy decides that is something she should have. Payor: Medicare PCP: Dr Eric Forman Patient is a 84 year old female who came to the ER on 05/03/24 by ambulance for shortness of breath. Patient is on supplemental O2 at home typically set to 5 liters. She has required up to 8 liters at the hospital during this stay. She is at 5 liters this morning. X-ray at ER showed emphysema. Viral panel came back negative. It is likely patient will be able to D/C today. Patient prefers to return home at discharge. she will need us to arrange a ride for her. she said she is happy to follow recommendations from therapy as far as whether she should or should not have assistance from home health. DCP will continue to monitor for needs in relation to transition home. Discharge Planning/Care Management CM Discharge Assessment Start: 05/03/24 09:29 Freq: Status: Active Protocol: Document 05/03/24 09:29 PAOLA (Rec: 05/03/24 09:38 PAOLA [id number]) Discharge Planning Assessment Assigned Semi Conductor Assembler Moises Mott RN DPOA/Assigned Designee Name Adán De La Cruz (reported by patient) Contact Information [phone] Advance Directives? No Advance Directives on File No History Provided By Patient Expected Length of Stay 2 Has Patient been admitted in last 30 No days? Prior Living Arrangements House Household Members spouse Comment Patient lives in own home with spouse. Type of transporation used prior to Relies on Others admit Comment Patient said she has not driven in over a year and her spouse also does not drive. Patient said neighbors help her to get to appointments. She said she will need us to help her get a ride home from the hospital. She was not in support of asking a neighbor for a ride home. Independent with ADL's Yes Is patient alert and oriented? Yes Comment Patient has not needed assistance at home prior to this hospitalization. she said if it is advised for her to have home assistance she is open to it. Caregiver for Another No Community Services used prior to Oxygen Therapy admission: Comment Patient is on supplemental oxygen at home. Also her PCP Dr Eric Forman sees the patient at home for her general checkups. Comment None. Barriers to Discharge Yes Comment Patient will need help with arranging a ride home from the hospital. Discharge Plan Home Community Services Oxygen Therapy Transportation Arrangement We will need to help arrange transportation. Referrals Initiated None needed Whiteboard Updated in Patient Room with Yes name and ext. # of Semi Conductor Assembler Review Status In Process Please Provide Date Initial DC 05/03/24 Assessment Was Performed
--- NOTE | 2024-05-03 11:53 | CM.DPC ---
Patient prefers medical transport home so she can be taken by wheelchair and can receive help getting up the steps on foot when she gets home. I called [employer] [facility] and they quoted the ride at 170.00 and they can help her get into her home. Patient said she is ok with paying this. Also patient did not bring an 02 tank when she came to the hospital. She will need a tank for the ride home. Patient does have oxygen services already set up at home so she has what she needs there already. Dr Bartholomew is aware of the need for the oxygen tank needed for transport. [employer] [facility] [phone]
--- NOTE | 2024-05-03 18:09 | P.HP_ITS ---
History of Present Illness History of Present Illness Date Patient Seen: 05/03/24 Time Patient Seen: 13:00 Chief complaint: Difficulty breathing Narrative: Per overnight provider, 84-year-old female with past medical history of COPD on 5 L of oxygen at baseline, hypertension, hyperlipidemia, and anxiety presents with complaint of shortness of breath. Per the patient's report, the patient started to have increasing shortness of breath today. The patient admits he has some mild wheezing but denies any fever, new cough, chills, nausea, vomiting, diarrhea or chest pain. The patient did try her inhalers and nebulizer at home without much improvement. In our emergency room, the patient was hemodynamically stable. The patient initially was on 5 L of oxygen and was saturating well at rest. Chest x-ray shows no clear signs of pneumonia. Labs were relatively benign without sign of sepsis. BNP was in 800s but again chest x-ray shows no sign of volume overload. Patient was given DuoNebs as well as Solu-Medrol. Our ER physician did try to attempt to discharge the patient home but when the patient was ambulating she has increasing shortness of breath and her sats did drop requiring 6 L of oxygen. Interval history: Patient is doing well, down to baseline O2 use at this time. Still with strong cough and dyspnea with minimal exertion. [facility] Medical History Hypothyroidism associated with surgical procedure HTN (hypertension) COPD (chronic obstructive pulmonary disease) Surgical History History of lumbar laminectomy History of hysterectomy History of renal stent History of mastectomy H/O thyroidectomy Social History household members: spouse Smoking Status: Former smoker Tobacco: How many years used: 40 Meds Home Medications and Allergies Home Medications Medication Instructions Recorded Confirmed Type amlodipine 10 mg PO DAILY 05/03/24 05/03/24 History atorvastatin 40 mg PO BEDTIME 05/03/24 05/03/24 History citalopram 40 mg PO BEDTIME 05/03/24 05/03/24 History clopidogrel 75 mg PO BEDTIME 05/03/24 05/03/24 History labetalol 300 mg PO BID 05/03/24 05/03/24 History levothyroxine 200 mcg PO QACBREAK 05/03/24 05/03/24 History prednisone 20 mg tablet 40 mg (2 x 20 mg) PO DAILY 5 days 05/03/24 05/03/24 Rx #10 tabs primidone 150 mg PO BEDTIME 05/03/24 05/03/24 History spironolactone 25 mg PO DAILY 05/03/24 05/03/24 History Allergies Allergy/AdvReac Type Severity Reaction Status Date / Time No Known Drug Allergies Allergy Verified 05/03/24 00:27 Review of Systems Review of Systems Narrative: All other systems reviewed with the patient and are negative unless otherwise stated. Exam Vital Signs (past 8 hours): - 05/03/24 13:25 Pulse Rate 97 H Respiratory Rate 20 Pulse Oximetry 98 Oxygen Delivery Method Nasal Cannula Oxygen Flow Rate 5 Oxygen Delivery Method Nasal Cannula Oxygen Flow Rate 5 Narrative Exam Narrative: Physical Exam: GENERAL: The patient is not in any acute distressed. Awake and alert. HEENT: Nonicteric sclerae, PERRLA, EOMI. Oropharynx clear. Moist mucous membranes. Conjunctivae appear well perfused. HEART: Regular rate and rhythm without murmurs. No lower extremities edema. LUNGS: Bibasilar rhonchi, mild wheezing with inspiration, cough with every breath. ABDOMEN: Soft, positive bowel sounds, nontender. SKIN: No rash, no excessive bruising, petechiae, or purpura. NEUROLOGIC: AxO x 3. Cranial nerves II-XII intact without motor/sensory deficit. Objective Labs 05/03/24 06:06 05/03/24 06:06 Labs: Laboratory Results - last 24 hr 05/02/24 05/02/24 05/02/24 18:35 18:52 20:16 WBC 7.3 RBC 3.90 L Hgb 12.6 Hct 37.2 MCV 95.5 MCH 32.3 MCHC 33.8 RDW 13.7 Plt Count 276 Neut % (Auto) 79.0 H Lymph % (Auto) 11.0 L [place] % (Auto) 7.4 Eos % (Auto) 1.9 L Baso % (Auto) 0.7 Neut # (Auto) 5800 Lymph # (Auto) 800 L [place] # (Auto) 500 Eos # (Auto) 100 Baso # (Auto) 100 PT 10.7 INR 0.9 Sodium 134 L Potassium 4.6 Chloride 95 L Carbon Dioxide 31 BUN 19 H Creatinine 0.67 Estimated GFR > 60 BUN/Creatinine Ratio 28.4 H Glucose 150 H Lactate 2.0 Calcium 9.1 Total Bilirubin 0.4 AST 39 H ALT 26 Alkaline Phosphatase 98 Troponin I < 0.012 NT-Pro-B Natriuret Pep 814 H Total Protein 8.1 Albumin 4.7 Globulin 3.4 Albumin/Globulin Ratio 1.4 SARS-CoV-2 (PCR) Negative Influenza A (RT-PCR) Flu a negative Influenza B (RT-PCR) Flu b negative RSV (PCR) Negative 05/03/24 06:06 WBC 7.0 RBC 3.67 L Hgb 11.8 L Hct 34.6 L MCV 94.3 MCH 32.1 MCHC 34.1 RDW 13.9 Plt Count 228 Neut % (Auto) 92.1 H Lymph % (Auto) 6.0 L [place] % (Auto) 1.0 L Eos % (Auto) 0.1 L Baso % (Auto) 0.8 Neut # (Auto) 6500 Lymph # (Auto) 400 L [place] # (Auto) 100 Eos # (Auto) 0 Baso # (Auto) 100 PT INR Sodium 133 L Potassium 4.5 Chloride 97 L Carbon Dioxide 31 BUN 17 Creatinine 0.64 Estimated GFR > 60 BUN/Creatinine Ratio 26.6 H Glucose 141 H Lactate Calcium 9.2 Total Bilirubin AST ALT Alkaline Phosphatase Troponin I NT-Pro-B Natriuret Pep Total Protein Albumin Globulin Albumin/Globulin Ratio SARS-CoV-2 (PCR) Influenza A (RT-PCR) Influenza B (RT-PCR) RSV (PCR) Assessment & Plan Assessment & Plan narrative: COPD with exacerbation. change to oral prednisone from solumedrol. continue as needed nebulizer therapies titrate O2 to goal 89-96% while on supplemental therapy. RSV/Flu/COVID negative, given admission change to full respiratory panel. follow symptoms, still dyspic with minimal exertion. -consider additional diuresis if no improvement with possible TTE, elevated proBNP on admit but clinically more consistent with COPD rather than heart failure. Prior TTE with evidence of diastolic dysfunction with normal EF. Acute on chronic respiratory failure with hypoxemia, improved Hypertension. hold home labetalol continue amlodipine and spironolactone. Hyperlipidemia. - continue home statin Hypothyroidism. continue home levothyroxine 200 mcg Code: Full, surrogate is patient's spouse DVT: HSQ I have utilized all available immediate resources to obtain, update, or review the patient's current medications. Dispo: patient admitted under observation status, probable discharge home tomorrow given improvement today thus far though still has continued dyspnea with minimal exertion Additional history obtained via discussions with the ER provider. These discussions contributed to the creation of the above assessment and plan. I have reviewed patient's presenting documentation, labs, and imaging personally. Time-Based Coding :: [TOTAL MINUTES] spent with patient and on the chart (including review of chart, obtaining history, exam, reviewing outside data, placing orders, documenting exam and treatment plan, and counseling patient) on [DATE].
[2024-05-03] MEDS: AMLODIPINE 5 MG TABLET 10 MG PO (19:17)
[2024-05-03] MEDS: SPIRONOLACTONE 25 MG TABLET PO (19:17)
[2024-05-03] MEDS: PRIMIDONE 50 MG TABLET 150 MG PO (20:51)
[2024-05-03] MEDS: ATORVASTATIN 20 MG TABLET 40 MG PO (20:52)
[2024-05-03] MEDS: CLOPIDOGREL 75 MG TABLET PO (20:52)
[2024-05-04] VITALS (14 sets, daily range): BP systolic 140–188; BP diastolic 58–97; PULSE 68–116; RESP 18–20; TEMP 35.8–37; O2SAT 93–96
[2024-05-04] MEDS: HYDRALAZINE 20 MG/ML VIAL 10 MG IV (03:34)
[2024-05-04] MEDS: LEVOTHYROXINE 100 MCG TABLET 200 MCG PO (06:04)
[2024-05-04] MEDS: ALBUTEROL/IPRATROPIUM 3 ML AMPUL INH ×3 (06:11→21:59)
[2024-05-04] MEDS: LABETALOL 100 MG TABLET 300 MG PO ×2 (08:16→22:02)
[2024-05-04] MEDS: SPIRONOLACTONE 25 MG TABLET PO (08:17)
[2024-05-04] MEDS: predniSONE 20 MG TABLET 40 MG PO (08:17)
[2024-05-04] MEDS: AMLODIPINE 5 MG TABLET 10 MG PO (08:17)
[2024-05-04] MEDS: PANTOPRAZOLE DR 20 MG TABLET 40 MG PO (08:18)
[2024-05-04] MEDS: HEPARIN 5,000 UNIT/ML VIAL 5000 UNIT SUBCUT ×2 (08:19→21:59)
--- NOTE | 2024-05-04 10:44 | DIET.CONS ---
Dietary Consultation Note Admission Date: 05/03/2024 01:40 Assessment: 84 y F admitted for SOB/COPD exacerbation. Screened pt d/t low MNA. Met with pt at bedside. Reports low appetite for past 3 days only d/t SOB. Besides these past 3 days, appetite is normal, eating multiple meals per day. Denies weight changes. Is trying protein supplementation for lunch for something easier to consume. Ht: 175.26 cm Wt: 84 kg BMI: 27.5 UBW: 84 kg, no EMR recent wt hx Last BM: 05/02/24 (05/03/24 01:43) MNA: 9 Segundo Score: 20 Diet: 05/03/24 Breakfast Heart Healthy Diet Diet Modifications: Nutrition Percent Meal Consumed 0% 05/03/24 11:17 Labs: RBC 3.67 X10^6/uL (4.0-5.2) L 05/03/24 06:06 Hgb 11.8 g/dL (12.0-16.0) L 05/03/24 06:06 Hct 34.6 % (36-46) L 05/03/24 06:06 Creatinine 0.64 mg/dL (0.52-1.04) 05/03/24 06:06 Lactate 2.0 mmol/L (0.7-2.1) 05/02/24 18:35 NT-Pro-B Natriuret Pep 814 pg/mL (<450) H 05/02/24 18:35 Nutrition Diagnosis: Inadequate oral intakes r/t decreased appetite secondary to SOB aeb estimated <50% of estimated energy needs in 3 days Interventions: -Prefers protein smoothie supplementation over ONS, will order BID-TID EER: 1700 kcals (20 kcals/kg per BMI) 80 g protein (1g/kg per age) Monitoring/Evaluations: PO intakes/tolerance Electronically Signed by: Sherrie Noel 05/04/24 10:44 Clinical Diet[address] [address]
[2024-05-04 11:40] LABS: Add Manual Diff / Slide Review NO; Basophils Absolute Auto 0 /uL (0-100); Basophils Percent Auto 0.5 % (0-2); Eosinophils Absolute Auto 0 /uL (0-450); Eosinophils Percent Auto 0.2 % (2-4); Hematocrit 35.8 % (36-46); Hemoglobin 12.2 g/dL (12.0-16.0); Lymphocytes Absolute Auto 600 /uL (1100-4500); Lymphocytes Percent Auto 6.7 % (25-40); Mean Corpuscular HGB Conc 34.1 % (30-36); Mean Corpuscular Hemoglobin 32.2 PG (26-34); Mean Corpuscular Volume 94.5 fL (80-100); Monocytes Absolute Auto 400 /uL (0-900); Monocytes Percent Auto 4.3 % (3-14); Neutrophils Absolute Auto 7800 /uL (1500-7000); Neutrophils Percent Auto 88.3 % (50-75); Platelet Count 279 X10^3/uL (150-400); Red Blood Cell Count 3.79 X10^6/uL (4.0-5.2); Red Cell Distribution Width 13.9 % (11.6-14.8); White Blood Cell Count 8.8 X10^3/uL (4.5-11.0)
--- NOTE | 2024-05-04 18:03 | P.PN_ITS ---
Subjective Subjective Interval history: Still with strong cough and dyspnea with minimal exertion. Changed to inpatient. Now improved from baseline home O2 use. Exam Vital Signs (past 8 hours): - 05/04/24 12:00 05/04/24 12:13 05/04/24 15:40 Temperature 96.8 F L Pulse Rate 86 86 116 H Respiratory Rate 18 20 Blood Pressure 160/58 H 160/58 H Pulse Oximetry 96 95 Oxygen Delivery Method Nasal Cannula Oxygen Flow Rate 4 4 Oxygen Delivery Method Nasal Cannula Oxygen Flow Rate 4 Narrative Exam Narrative: Physical Exam: GENERAL: The patient is not in any acute distressed. Awake and alert. HEENT: Nonicteric sclerae, PERRLA, EOMI. Oropharynx clear. Moist mucous membranes. Conjunctivae appear well perfused. HEART: Regular rate and rhythm without murmurs. No lower extremities edema. LUNGS: Bibasilar rhonchi, mild wheezing with inspiration, cough with every breath. ABDOMEN: Soft, positive bowel sounds, nontender. SKIN: No rash, no excessive bruising, petechiae, or purpura. NEUROLOGIC: AxO x 3. Cranial nerves II-XII intact without motor/sensory deficit. Objective Labs 05/04/24 11:30 05/03/24 06:06 Labs: Laboratory Results - last 24 hr 05/04/24 11:30 WBC 8.8 RBC 3.79 L Hgb 12.2 Hct 35.8 L MCV 94.5 MCH 32.2 MCHC 34.1 RDW 13.9 Plt Count 279 Neut % (Auto) 88.3 H Lymph % (Auto) 6.7 L [place] % (Auto) 4.3 Eos % (Auto) 0.2 L Baso % (Auto) 0.5 Neut # (Auto) 7800 H Lymph # (Auto) 600 L [place] # (Auto) 400 Eos # (Auto) 0 Baso # (Auto) 0 PFSH Medical History Hypothyroidism associated with surgical procedure HTN (hypertension) COPD (chronic obstructive pulmonary disease) Surgical History History of lumbar laminectomy History of hysterectomy History of renal stent History of mastectomy H/O thyroidectomy Social History household members: spouse Smoking Status: Former smoker Tobacco: How many years used: 40 Assessment & Plan Assessment & Plan narrative: COPD with exacerbation. changed to oral prednisone from solumedrol. Continue today prednisone. continue as needed nebulizer therapies titrate O2 to goal 89-96% while on supplemental therapy. RSV/Flu/COVID negative, given admission change to full respiratory panel. follow symptoms, still dyspic with minimal exertion. -consider additional diuresis tomorrow if no improvement with possible TTE, elevated proBNP on admit but clinically more consistent with COPD rather than heart failure. Prior TTE with evidence of diastolic dysfunction with normal EF. Acute on chronic respiratory failure with hypoxemia, improved - now on baseline home o2, but continued dyspnea with minimal exertion. Hypertension. hold home labetalol continue amlodipine and spironolactone. Hyperlipidemia. - continue home statin Hypothyroidism. continue home levothyroxine 200 mcg Code: Full, surrogate is patient's spouse DVT: HSQ I have utilized all available immediate resources to obtain, update, or review the patient's current medications. Dispo: changed to inpatient today, hopefully home in the next 1-2 days. I have reviewed patient's presenting documentation, labs, and imaging personally. Time-Based Coding :: [TOTAL MINUTES] spent with patient and on the chart (including review of chart, obtaining history, exam, reviewing outside data, placing orders, documenting exam and treatment plan, and counseling patient) on [DATE].
[2024-05-04] MEDS: PRIMIDONE 50 MG TABLET 150 MG PO (22:01)
[2024-05-04] MEDS: ATORVASTATIN 20 MG TABLET 40 MG PO (22:01)
[2024-05-04] MEDS: CLOPIDOGREL 75 MG TABLET PO (22:02)
[2024-05-05] MEDS: LEVOTHYROXINE 100 MCG TABLET 200 MCG PO (05:26)
[2024-05-05 06:16] LABS: Add Manual Diff / Slide Review NO; Basophils Absolute Auto 0 /uL (0-100); Basophils Percent Auto 0.4 % (0-2); Eosinophils Absolute Auto 0 /uL (0-450); Eosinophils Percent Auto 0.7 % (2-4); Hematocrit 35.1 % (36-46); Hemoglobin 11.9 g/dL (12.0-16.0); Lymphocytes Absolute Auto 900 /uL (1100-4500); Lymphocytes Percent Auto 12.3 % (25-40); Mean Corpuscular HGB Conc 33.8 % (30-36); Mean Corpuscular Hemoglobin 31.8 PG (26-34); Mean Corpuscular Volume 94.1 fL (80-100); Monocytes Absolute Auto 800 /uL (0-900); Monocytes Percent Auto 11.5 % (3-14); Neutrophils Absolute Auto 5400 /uL (1500-7000); Neutrophils Percent Auto 75.1 % (50-75); Platelet Count 260 X10^3/uL (150-400); Red Blood Cell Count 3.73 X10^6/uL (4.0-5.2); Red Cell Distribution Width 13.9 % (11.6-14.8); White Blood Cell Count 7.2 X10^3/uL (4.5-11.0)
[2024-05-05 06:40] LABS: BUN Creatinine Ratio 31.3 (6-22); Blood Urea Nitrogen 20 mg/dL (7-17); Calcium 9.2 mg/dL (8.4-10.2); Carbon Dioxide 31 mmol/L (22-32); Chloride 96 mmol/L (98-107); Estimated Glomerular Filt Rate > 60 mL/min (>60); Glucose 92 mg/dL (80-110); HEMOLYSIS < 15 (0-50); Magnesium 1.6 mg/dL (1.6-2.3); Potassium 3.6 mmol/L (3.4-5.1); Sodium 133 mmol/L (137-145)
[2024-05-05 08:00] VITALS: BP 142/57; PULSE 86; RESP 20; TEMP 36.4; O2SAT 96
[2024-05-05] MEDS: SPIRONOLACTONE 25 MG TABLET PO (08:50)
[2024-05-05 08:51] VITALS: BP 142/57; PULSE 86
[2024-05-05] MEDS: HEPARIN 5,000 UNIT/ML VIAL 5000 UNIT SUBCUT (08:51)
[2024-05-05] MEDS: LABETALOL 100 MG TABLET 300 MG PO (08:51)
[2024-05-05] MEDS: predniSONE 20 MG TABLET 40 MG PO (08:51)
[2024-05-05] MEDS: PANTOPRAZOLE DR 20 MG TABLET 40 MG PO (08:52)
[2024-05-05] MEDS: ALBUTEROL/IPRATROPIUM 3 ML AMPUL INH (08:53)
[2024-05-05 08:55] VITALS: PULSE 112; RESP 22; O2SAT 96
--- NOTE | 2024-05-05 09:33 | PM.DS.1 ---
History of Present Illness History of Present Illness Date Patient Seen: 05/05/24 Time Patient Seen: 09:33 Chief complaint: Difficulty breathing Narrative: Per overnight provider, 84-year-old female with past medical history of COPD on 5 L of oxygen at baseline, hypertension, hyperlipidemia, and anxiety presents with complaint of shortness of breath. Per the patient's report, the patient started to have increasing shortness of breath today. The patient admits he has some mild wheezing but denies any fever, new cough, chills, nausea, vomiting, diarrhea or chest pain. The patient did try her inhalers and nebulizer at home without much improvement. In our emergency room, the patient was hemodynamically stable. The patient initially was on 5 L of oxygen and was saturating well at rest. Chest x-ray shows no clear signs of pneumonia. Labs were relatively benign without sign of sepsis. BNP was in 800s but again chest x-ray shows no sign of volume overload. Patient was given DuoNebs as well as Solu-Medrol. Our ER physician did try to attempt to discharge the patient home but when the patient was ambulating she has increasing shortness of breath and her sats did drop requiring 6 L of oxygen. Interval history: Patient is doing well, down to baseline O2 use at this time. Still with strong cough and dyspnea with minimal exertion. Discharge Providers Provider Date of admission: 05/04/24 12:33 Discharge Date: 05/05/24 Primary care physician: Caitlyn Mathews PA-C Discharge provider: Karan Bartholomew DO Summary Hospital Course Discharge Diagnosis: COPD with exacerbation. Acute on chronic respiratory failure with hypoxemia, improved Hypertension. Hyperlipidemia. Hypothyroidism. Hospital Course: 84 year old female with PMH of COPD on 5L O2, HTN, HLD, hypothyroid admitted with dyspnea on exertion and slightly worsened hypoxia requiring 6L in the ER. She was treated with steroids with slow improvement in hypoxia, actually down to intermittent use of 3L but at baseline. She continued to have dyspnea with minimal exertion until the day of discharge when she finally began to feel improved. She was discharged home, and will complete 3 more days of prednisone at home. No other changes to home medications are recommended at the time of discharge. Time Spent with Patient Time spent: Greater than 30 minutes Exam Vital Signs (past 8 hours): - 05/05/24 08:00 05/05/24 08:51 05/05/24 08:55 Temperature 97.6 F Pulse Rate 86 86 112 H Respiratory Rate 20 22 Blood Pressure 142/57 H 142/57 H Pulse Oximetry 96 96 Oxygen Delivery Method Nasal Cannula Oxygen Flow Rate 4 3.5 Oxygen Delivery Method Nasal Cannula Oxygen Flow Rate 3.5 Narrative Exam Narrative: Physical Exam: GENERAL: The patient is not in any acute distressed. Awake and alert. HEENT: Nonicteric sclerae, PERRLA, EOMI. Oropharynx clear. Moist mucous membranes. Conjunctivae appear well perfused. HEART: Regular rate and rhythm without murmurs. No lower extremities edema. LUNGS: Bibasilar rhonchi, mild wheezing with inspiration, cough with every breath. ABDOMEN: Soft, positive bowel sounds, nontender. SKIN: No rash, no excessive bruising, petechiae, or purpura. NEUROLOGIC: AxO x 3. Cranial nerves II-XII intact without motor/sensory deficit. Objective Labs 05/05/24 05:27 05/05/24 05:27 Labs: Laboratory Results - last 24 hr 05/04/24 05/05/24 11:30 05:27 WBC 8.8 7.2 RBC 3.79 L 3.73 L Hgb 12.2 11.9 L Hct 35.8 L 35.1 L MCV 94.5 94.1 MCH 32.2 31.8 MCHC 34.1 33.8 RDW 13.9 13.9 Plt Count 279 260 Neut % (Auto) 88.3 H 75.1 H Lymph % (Auto) 6.7 L 12.3 L [place] % (Auto) 4.3 11.5 Eos % (Auto) 0.2 L 0.7 L Baso % (Auto) 0.5 0.4 Neut # (Auto) 7800 H 5400 Lymph # (Auto) 600 L 900 L [place] # (Auto) 400 800 Eos # (Auto) 0 0 Baso # (Auto) 0 0 Sodium 133 L Potassium 3.6 Chloride 96 L Carbon Dioxide 31 BUN 20 H Creatinine 0.64 Estimated GFR > 60 BUN/Creatinine Ratio 31.3 H Glucose 92 Calcium 9.2 Magnesium 1.6 PFSH Medical History Hypothyroidism associated with surgical procedure HTN (hypertension) COPD (chronic obstructive pulmonary disease) Surgical History History of lumbar laminectomy History of hysterectomy History of renal stent History of mastectomy H/O thyroidectomy Social History household members: spouse Smoking Status: Former smoker Tobacco: How many years used: 40 Discharge Plan Discharge Plan Patient Disposition: Home Provider Discharge Comment: You were admitted to the hospital with shortness of breath and exacerbation of your lung disease. Continue prednisone at home for another 3 days, with your next dose at home being tomorrow. Discharge orders & Medications Prescriptions: New prednisone 20 mg tablet 40 mg PO DAILY 5 Days Qty: 10 0RF prednisone 20 mg Tablet 40 mg PO DAILY 3 Days Qty: 6 0RF Continued amlodipine 10 mg PO DAILY atorvastatin 40 mg PO BEDTIME citalopram 40 mg PO BEDTIME clopidogrel 75 mg PO BEDTIME labetalol 300 mg PO BID levothyroxine 200 mcg PO QACBREAK Patient Comments: Takes between 6am and 7am primidone 150 mg PO BEDTIME spironolactone 25 mg PO DAILY Follow up/Referrals: Caitlyn Mathews PA-C [Primary Care Provider] - Diet/Activity/Treatments Diet: Diet as Tolerated and Regular Activity: As tolerated no restrictions. Oxygen: continue oxygen for goal 90-96% Visit Report/Discharge Packet Stand Alone Forms: Patient Portal/API, Stroke Signs & Symptoms Discharge Data Primary Care Provider: Caitlyn Mathews
--- NOTE | 2024-05-05 10:49 | CM.DPNOTE ---
DCP Continued: Reviewed EMR and team rounds for pt?s medical status. Per hospitalist, pt cleared for discharge home. RT completed evaluation for home O2, will provide O2 tank to pt for ride home. Pt has O2 available at home provided by [facility] [place]. DCP called [facility], it is reported that there are not available transports today. DCP called [facility], spoke with Daniel, is is reported pt can be transported at 1130 to their home in [place] for $157.00. Pt will discuss payment further with [facility]. DCP notified RN, SPANISH [employer]ER, pt and pt of transport time. Plan: Anticipating dc home via wheelchair transport with [facility] at 1130. CM Team will continue to follow for coordination of discharge plans. LUCINDA Gallegos
[2024-05-05 12:05] VITALS: BP 142/57; PULSE 112
--- NOTE | 2024-05-05 12:11 | PC.NURSE ---
Discharge Day Shift: Pt leaving via transport to home, taking all belongings with her. Vitals taken, IV removed, pt is stable and A&O x 4.
== END 2024-05-05 12:13 | disposition home or self-care (01) | DRG 190 ==
LOC: ED 05-03 01:25 → AC 05-03 01:40
PROVIDERS: Internal Medicine; Admitting Provider Internal Medicine; Emergency Provider Emergency Medicine; PCP Physician Assistant; Referring Provider Emergency Medicine; Visit Provider Internal Medicine
DX: J44.1 Chronic obstructive pulmonary disease with (acute) exacerbation (principal); J96.21 Acute and chronic respiratory failure with hypoxia; I10 Essential (primary) hypertension; E78.5 Hyperlipidemia, unspecified; E03.9 Hypothyroidism, unspecified; Z99.81 Dependence on supplemental oxygen; Z66 Do not resuscitate; Z87.891 Personal history of nicotine dependence; Z79.890 Hormone replacement therapy
CPT/HCPCS: 0241U; 36415; 71045; 80048; 80053; 83605; 83735; 83880; 84484; 85025; 85610; 93005; 94640; 94762; 96374; 99285; 99291; G0378; J0360; J1644; J2919